=== PATIENT | female | born 1990 | race Caucasian/White ===

== ENCOUNTER 2019-07-01 13:35 | Inpatient (IN) | payer BC ==
[~2019-07-01] VITALS: Ht 162.6 cm; Wt 63.5 kg
[~2019-07-01 13:35] MED LIST changes: -DOCU-416 PO; -LAMO25TA64 PO; -MULT-1379 PO; -OLANZapine ZYDIS ODT 5MG TABDP PO ONE; -TRAZ150T8 PO
[2019-07-01 13:56] VITALS: BP 121/77
[2019-07-01] MEDS ORDERED: MAG HYD/AL HYD/SIMETH 30ML UDC PO PRN (14:00)
[2019-07-01] MEDS ORDERED: DIAZEPAM 10 MG TAB PO PRN (21:00)
[2019-07-01 21:02] VITALS: BP 114/80
[2019-07-02 06:47] VITALS: BP 112/73
[2019-07-02] MEDS: MULTIVITAMINS TAB PO SCH (08:04)
[2019-07-02] MEDS ORDERED: FOLIC ACID 1 MG TAB PO SCH (09:00)
[2019-07-02] MEDS ORDERED: THIAMINE HCL 100 MG TAB PO SCH (09:00)
[2019-07-02] MEDS: lamoTRIgine 25 MG TAB PO SCH (12:13)
[2019-07-02 12:30] VITALS: BP 108/68
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
[2019-07-02 18:46] VITALS: BP 128/79
[2019-07-02] MEDS: traZODone HCL 50 MG TAB PO SCH (20:24)
[2019-07-02] MEDS ORDERED: IBUPROFEN 200 MG TAB PO PRN (20:50)
[2019-07-02] MEDS: DOCUSATE SODIUM 100 MG CAP PO SCH (21:18)
[2019-07-03 06:11] VITALS: BP 120/45
[2019-07-03] MEDS: MULTIVITAMINS TAB PO SCH (07:41)
[2019-07-03] MEDS: lamoTRIgine 25 MG TAB PO SCH (07:41)
[2019-07-03] MEDS: DOCUSATE SODIUM 100 MG CAP PO SCH (07:41)
--- NOTE | 2019-07-03 10:47 | BHS Progress Note ---
S - Subjective Progress Notes Subjective "Not great. I didn't sleep well, I had nightmares." She reports feeling sad this morning and missing her children. She is tearful. She rates depression level a 6, denies SI. She rates anxiety level a 7, anger a 3. Guilt/shame are rated 8. Suicidal Ideation: None Homicidal Ideation: None BHS - Objective Physical Exam Vital Signs Vital Signs Date Time Temp Pulse Resp B/P (MAP) Pulse Ox O2 Delivery O2 Flow Rate FiO2 07/03/19 06:11 99.6 92 15 120/45 (70) 94 Room Air Muscle Strength and Tone: WNL BHS Medications Reviewed: Side Effects, Benefits of Medication, Risks Allergies Reviewed: Yes Mental Status Exam General Appearance: Casual, Well Groomed, Good Eye Contact, Cooperative, Polite, Tearful Speech: Clear, Spontaneous, Normal Rate, Normal Rhythm, Normal Volume, Normal Tone Mood: Dysthmic/Depressed Affect: Sad, Tearful, Anxious Thought Process: Organized, Logical, Goal Directed; No Loose Associations, No Flight of Ideas Thought Content: No Suicidal Ideation, No Homicidal Ideation, No Delusions, No Auditory Halllucinations, No Visual Hallucinations, No Thought Broadcasting, No Ideas of Reference Sensorium: Clear Cognition: Alert & Oriented-Person, Alert & Oriented-Place, Alert & Oriented- Time, Qxjjh-Jlaerfwi-Jnapnczun Memory: Immediate, Recent, Remote (grossly intact) Intelligence: Average Insight Judgment: Fair [facility] Assessment and Plan [id number] Encounter Date: Jul 03, 2019 [id number] Encounter Time: 09:00 [facility] Plan: Admit to Unit, Necessary Precautions, Individual/Group Therapy, Admin/Titrate Meds, Educate Patient Tobacco Medications: Not Appropriate Condition Multpiple Antipsychotics Used: No Problems: (1) Borderline personality disorder Status: Chronic (2) Bipolar II disorder Status: Chronic Condition Client is tearful today and she reports feeling shame. She does voice hope in that the right medications and treatment will be helpful. She denies problems with the Lamictal. Will continue to monitor, provide education, support, and discharge planning. BENITEZ SALDANA NP Jul 03, 2019 10:47
[2019-07-03 12:45] VITALS: BP 112/62
[2019-07-03] MEDS: traZODone HCL 50 MG TAB PO SCH (21:33)
[2019-07-04 06:13] VITALS: BP 104/48
[2019-07-04] MEDS: DOCUSATE SODIUM 100 MG CAP PO SCH (08:46)
[2019-07-04] MEDS: lamoTRIgine 25 MG TAB PO SCH (08:46)
[2019-07-04] MEDS: MULTIVITAMINS TAB PO SCH (08:46)
[2019-07-04] MEDS ORDERED: BISACODYL 5 MG TABEC PO ONE (10:00)
--- NOTE | 2019-07-04 10:26 | BHS Progress Note ---
[facility] - Subjective Progress Notes Subjective "I feel better. Much better than yesterday." She reports that she slept well last night sleeping through the night without nightmares. She rates depression level a 0, anger a 0, SI 0, anxiety 0, guilt/shame 3. She is anticipating a visit from her and children today. Suicidal Ideation: None Homicidal Ideation: None [facility] - Objective Physical Exam Vital Signs Vital Signs Date Time Temp Pulse Resp B/P (MAP) Pulse Ox O2 Delivery O2 Flow Rate FiO2 07/04/19 06:13 99.1 78 104/48 (66) 95 Room Air 07/03/19 12:45 16 Muscle Strength and Tone: WNL S Medications Reviewed: Side Effects, Benefits of Medication, Risks Allergies Reviewed: Yes Mental Status Exam General Appearance: Casual, Well Groomed, Good Eye Contact, Cooperative, Polite Speech: Clear, Spontaneous, Normal Rate, Normal Rhythm, Normal Volume, Normal Tone Mood: Dysthmic/Depressed Affect: Full and Appropriate, Calm Thought Process: Organized, Logical, Goal Directed; No Loose Associations, No Flight of Ideas Thought Content: No Suicidal Ideation, No Homicidal Ideation, No Delusions, No Auditory Halllucinations, No Visual Hallucinations, No Thought Broadcasting, No Ideas of Reference Sensorium: Clear Cognition: Alert & Oriented-Person, Alert & Oriented-Place, Alert & Oriented- Time, Arksx-Kokqglrc-Cxwdrteln Memory: Immediate, Recent, Remote (grossly intact) Intelligence: Average Insight Judgment: Good (gaining insight) [facility] Assessment and Plan [id number] Encounter Date: Jul 04, 2019 Stqj-[id number] Encounter Time: 09:00 [facility] Plan: Admit to Unit, Necessary Precautions, Individual/Group Therapy, Admin/Titrate Meds, Educate Patient Tobacco Medications: Not Appropriate Condition Multpiple Antipsychotics Used: No Problems: (1) Borderline personality disorder Status: Chronic (2) Bipolar II disorder Status: Chronic Condition She reports that she slept well last night and feels better this morning. She anticipates that her and children will come to visit today. She is considering that she will go to live with her grandparents in [place] when she discharges as she and her work through marital discord. She plans to discuss this with the team and her family tomorrow in treatment team. She reports hope after receiving education about her diagnosed disorders and reports plan to follow up in outpatient treatment. PLAN: at this time the Lamictal 25mg daily will be continued with plan to titrate per protocol. Will continue the Trazodone 100mg QHS for sleep. Treatment team tomorrow morning to discuss discharge planning. She is working on a relapse prevention and safety plan. BENITEZ SALDANA NP Jul 04, 2019 10:22
[2019-07-04 13:10] VITALS: BP 104/62
[2019-07-04] MEDS ORDERED: MAGNESIUM CITRATE 300 ML BTL PO ONE (16:30)
[2019-07-04] MEDS: traZODone HCL 50 MG TAB PO SCH (21:35)
[2019-07-04 21:40] VITALS: BP 124/71
[2019-07-05 06:26] VITALS: BP 100/74
[2019-07-05] MEDS: lamoTRIgine 25 MG TAB PO SCH (08:21)
[2019-07-05] MEDS: MULTIVITAMINS TAB PO SCH (08:21)
[2019-07-05] MEDS: DOCUSATE SODIUM 100 MG CAP PO SCH ×2 (08:21→08:23)
[2019-07-05] MEDS ORDERED: DOCU-416 PO (10:26)
[2019-07-05] MEDS ORDERED: TRAZ150T8 PO (10:27)
[2019-07-05] MEDS ORDERED: LAMO25TA64 PO (10:30)
[2019-07-05] MEDS ORDERED: MULT-1379 PO (10:32)
--- NOTE | 2019-07-06 12:50 | SCHAAF DISCHARGE ---
DATE OF ADMISSION: July 01, 2019 DATE OF DISCHARGE: July 05, 2019 Patient was seen at approximately 0830 hours on a.m. of July 05, 2019 for note concerning this dictation. ATTENDING PHYSICIAN Pop Culp MD FINAL DIAGNOSES 1. Bipolar 2 disorder. 2. Recent hypomanic cluster B personality traits, rule out borderline personality. 3. Social stressors, ongoing. 4. Partner relational problems. REASON FOR ADMISSION This is a 28-year-old female who has recently been "out of control". Please see H and P for full details. Patient seemingly suffering from a mixture of both hypomanic type symptoms associated with potential bipolar 2 condition as well as untreated underlying cluster B personality traits, rule out personality disorder. Patient experiencing recent infidelity and generalized irresponsible behavior. Patient seems to recognize this and wants help. Patient coming to the emergency room after bouts of infidelity had been discovered and she and her were trying to discuss this. Again, please see H and P for full details regarding admission. Patient took an active role in her treatment overall, responded to individual group therapy and medication management and patient was discharged to home. PHYSICAL EXAMINATION Please see emergency room note. Notable for 28-year old female requesting STD screening, which was overall unremarkable. Patient cooperative with admission process and in no medical distress. Vital signs at the time of admission: Temperature 98.6, pulse 98, respiratory rate 20, blood pressure 130/88 and pulse oximetry 94% on room air. LABORATORY DATA Gonorrhea, HIV, herpes and Chlamydia were all negative. screen was negative. TSH in normal range. CMP unremarkable. CBC overall unremarkable as well. Urinalysis unremarkable. Toxicology screen negative for substances of abuse with a nondetectable serum alcohol level. MENTAL STATUS EXAMINATION GENERAL APPEARANCE, BEHAVIOR AND ATTITUDE: This is a pleasant 28-year-old female who appears to be an accurate historian overall. No psychomotor agitation or retardation. No periods of tearfulness. Patient having improved interactions with her present at time of discharge. No bizarre mannerisms or tics. Making good eye contact. SPEECH: Within normal limits. Regular rate, rhythm, volume and tone. MOOD: Described as improved. AFFECT: Full and bright. THOUGHT PROCESSES: Logical and goal-directed, no loose associations or flight of ideas. THOUGHT CONTENT: Free of auditory or visual hallucinations, ideas of reference, thought broadcastings, delusions, obsessions or compulsions. Patient adamantly denying suicidal or homicidal ideation. SENSORIUM: Clear. COGNITION: Alert and oriented to person, place, time and situation. MEMORY: Immediate, recent and remote estimated intact. INTELLIGENCE: Average, based on interview. INSIGHT AND JUDGMENT: Considered grossly intact in the absence of illicit substance use or alcohol for ongoing outpatient management. RESULTS OF TESTING Imaging: None. Laboratory data: See above. CONSULTATIONS None. TREATMENT Patient received medications, participated in individual and group therapy. HOSPITAL COURSE Patient exhibiting some mild cluster B type behaviors and resistance to care overall initially upon arrival. However, this quickly resolved. Patient taking an active role in her treatment. Patient was started on trazodone 100 mg q.h.s. here on the Unit and did well with insomnia. Patient was also started on upward Lamictal titration on the Unit for mood stability and bipolar symptomatology. Patient continued to improve. No parasuicidal behaviors noted. CONDITION OF PATIENT ON DISCHARGE Stable. Considered a minimal risk to herself or others and appropriate for ongoing outpatient management. DISPOSITION The patient was discharged to home. She would follow up with outpatient medications and therapy management. Encouraged to attend DBT. She would abstain from alcohol, illicit substances. She was given the Crisis Line should symptoms return. Discharge medications included trazodone 50 to 150 mg p.o. q.h.s. p.r.n. for insomnia. Patient can take 100 mg Colace [id number] daily for constipation and Lamictal 25 mg for the first 14 days and then 50 mg for next two weeks following that and then patient would remain on 100 mg after that until seen by outpatient provider. Prescriptions were given. Multivitamin with minerals daily also. The risks, benefits and alternatives of the above discharge plan were discussed. Informed consent was given to proceed with the above discharge plan by this competent patient. Patient's present at time of discharge. RAMIREZ
== END 2019-07-05 11:21 | disposition home or self-care (01) | DRG 885 ==
LOC: BHS 13:35
PROVIDERS: ADMIT Psychiatry & Neurology Psychiatry; ATTEND Psychiatry & Neurology Psychiatry
DX: F31.81 Bipolar II disorder (principal); F60.3 Borderline personality disorder; F68.8 Other specified disorders of adult personality and behavior

== ENCOUNTER → 2019-07-01 | Emergency (ER) | payer BC, MEDICAID ==
[~2019-07-01] MED LIST: ACE3 PO; ADV250/50 INH; AMO500 PO; CYC10 PO; DOC240 PO; DOCU-416 PO; FERR325T3 PO; IBU800 PO; LAMO25TA64 PO; LOR5 PO; MULT-1379 PO; OLANZapine ZYDIS ODT 5MG TABDP PO ONE; PNV1TABL92 PO; PROAIRPT IH; TRAZ150T8 PO
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
[2019-07-01 11:43] LABS: PLATELET COUNT, AUTOMATED 192 K/uL (150-450)
[2019-07-01 13:27] VITALS: BP 126/73
== END ==
LOC: ER 10:45
DX: R45.851 Suicidal ideations (principal); F32.9 Major depressive disorder, single episode, unspecified
CPT/HCPCS: 36415; 80305; 80320; 80329; 81001; 82040; 82247; 82310; 82374; 82435; 82565; 82947; 83735; 84075; 84132; 84155; 84295; 84443; 84450; 84460; 84520; 84703; 85025; 86703; 87491; 87529; 87591; 99284